=== PATIENT | male | born 1965 | race Caucasian/White ===

== ENCOUNTER 2018-11-05 01:10 | Emergency (ER) | payer BC ==
[2018-11-05] MEDS ORDERED: Ondansetron 4 MG/2 ML SDV IVPUSH ONE (01:12)
[2018-11-05] MEDS ORDERED: Sodium Chloride 0.9% 1,000 ML IV ONE (01:12)
[2018-11-05 02:11] LABS: CHLORIDE,CL 104 mmol/L (98-107); SODIUM,NA 138 mmol/L (136-148)
--- NOTE | 2018-11-05 02:29 | CT ---
INDICATION: Right flank pain TECHNIQUE: CT abdomen and pelvis without contrast. COMPARISON: November 24, 2015 FINDINGS: Lower chest: Unremarkable. Liver: Hepatic steatosis. The liver measures 22.0 cm in length. Spleen: Unremarkable. Pancreas: Unremarkable. Gallbladder and bile ducts: Unremarkable. Adrenal glands: Unremarkable. Kidneys: Unremarkable. No kidney or ureteral stones and no hydronephrosis. GI tract: There is a duodenal diverticulum. Moderate amount of feces in the colon. Appendix is normal. Vascular structures: Unremarkable. Lymph nodes: Unremarkable. Miscellaneous: Unremarkable. No free air or significant free fluid. Pelvic Organs: Unremarkable. Bones: Unremarkable for age. IMPRESSION: No acute intra-abdominal inflammatory process identified. No renal stone or hydronephrosis. Moderate amount of feces in the colon. Hepatomegaly and hepatic steatosis. Please note that all CT scans at this facility use dose modulation, iterative reconstruction, and/or weight-based dosing when appropriate to reduce radiation dose to as low as reasonably achievable. Dictated by Debora Pérez MD @ Nov 05 2018 2:28AM Signed by Dr. Debora Pérez @ Nov 05 2018 2:28AM
[2018-11-05] MEDS ORDERED: Metoclopramide 10 MG/2 ML SDV IV ONE (02:43)
--- NOTE | 2018-11-05 03:11 | EDM.PDOC ---
ED HPI GENERAL MEDICAL PROBLEM - General Chief Complaint: Abdominal Pain Stated Complaint: RT SIDE HURTS Time Seen by Provider: 11/05/18 03:07 Source of Information: Reports: Patient - History of Present Illness INITIAL COMMENTS - FREE TEXT/NARRATIVE: HISTORY AND PHYSICAL: History of present illness: [Patient presents with 5 out of 10 right upper quadrant discomfort radiating to the flank, arrival he did decline pain medication. Pain has since dissipated to a 1 out of 10 and is tolerable No fever nausea vomiting chills sweats no chest pain shortness breath headache dizziness or palpitation no bowel or urine symptoms, will formed stool this morning ] Review of systems: As per history of present illness and below otherwise all systems reviewed and negative. Past medical history: As per history of present illness and as reviewed below otherwise noncontributory. Surgical history: As per history of present illness and as reviewed below otherwise noncontributory. Social history: No reported history of drug or alcohol abuse. Family history: As per history of present illness and as reviewed below otherwise noncontributory. Physical exam: HEENT: Atraumatic, normocephalic, pupils reactive, negative for conjunctival pallor or scleral icterus, mucous membranes moist, throat clear, neck supple, nontender, trachea midline. Lungs: Clear to auscultation, breath sounds equal bilaterally, chest nontender. Heart: S1S2, regular, negative for clicks, rubs, or JVD. Abdomen: Soft, nondistended, nontender. Negative for masses or hepatosplenomegaly. Negative for costovertebral tenderness. Pelvis: Stable nontender. Genitourinary: Deferred. Rectal: Deferred. Extremities: Atraumatic, negative for cords or calf pain. Neurovascular unremarkable. Neuro: Awake, alert, oriented. Cranial nerves II through XII unremarkable. Cerebellum unremarkable. Motor and sensory unremarkable throughout. Exam nonfocal. Diagnostics: []CBC CMP lipase troponin UA CT abdomen pelvis no contrast Therapeutics: Normal saline Reglan 10 mg IV [] Impression: [ colicky abdominal pain -resolved Moderate stool in the colon] Definitive disposition and diagnosis as appropriate pending reevaluation and review of above. right upper quadrant Pain Score (Numeric/FACES): 6 - Related Data Allergies Allergy/AdvReac Type Severity Reaction Status Date / Time thimerosal Allergy Unknown Redness Verified 01/17/16 13:46 Home Meds: Home Meds Lansoprazole [Prevacid 24Hr] 15 mg PO DAILY 03/22/15 [History] Loratadine [Claritin] 10 mg PO DAILY PRN 03/22/15 [History] Multivitamin [Men's Multi-Vitamin] 1 each PO DAILY 03/22/15 [History] [place]-3 Fatty Acids [Fish Oil] 1 tab PO DAILY 03/22/15 [History] Cetirizine [ZyrTEC] 1 tab PO PRN 01/17/16 [History] Hydrochlorothiazide 1 tab PO DAILY 01/17/16 [History] Lansoprazole [Prevacid] 1 tab PO PRN 01/17/16 [History] Meloxicam 1 tab PO DAILY 01/17/16 [History] amLODIPine Besylate [Amlodipine Besylate] 10 mg PO ACBREAKFAST 01/17/16 [History ] sulfaSALAzine 1 tab PO BID 01/17/16 [History] Past Medical History - Past Health History Medical/Surgical History: Denies Medical/Surgical History HEENT History: Reports: Other (See Below) Other HEENT History: Seasonal runny nose, sneezing symptoms Cardiovascular History: Reports: Hypertension Respiratory History: Reports: Sleep Apnea Other Respiratory History: Sleep apnea with machine Gastrointestinal History: Reports: Diverticulosis Other Gastrointestinal History: hx: Diverticulitis with perforation, history 3 week therapy of antibiotics Genitourinary History: Reports: Renal Calculus Musculoskeletal History: Reports: Other (See Below) Other Musculoskeletal History: ankolosying spondolitis right hip Neurological History: Reports: Other (See Below) Other Neuro History: Right Carpal Tunnel Syndrome Endocrine/Metabolic History: Reports: Obesity/BMI 30+ Hematologic History: Reports: None Immunologic History: Reports: Other (See Below) Other Immunologic History: 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 and MRSA positive long time ago, informed if he has not had follow up testing we need to 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 as MRSA positive, instructed to follow with primary provider to do testing as recommended to see if current or can be off his record, he verbalized understanding Oncologic (Cancer) History: Reports: None Dermatologic History: Reports: Other (See Below) Other Dermatologic History: Sebaceous Cyst - Infectious Disease History Infectious Disease History: Reports: None - Past Surgical History Head Surgeries/Procedures: Reports: None Social & Family History - Family History Family Medical History: Noncontributory - Tobacco Use Smoking Status *Q: Never Smoker Second Hand Smoke Exposure: No - Caffeine Use Caffeine Use: Reports: Coffee - Recreational Drug Use Recreational Drug Use: No ED ROS GENERAL - Review of Systems Review Of Systems: See Below ED EXAM, GENERAL - Physical Exam Exam: See Below Course - Vital Signs Last Recorded V/S: Last Vital Signs Temp 98.2 F 11/05/18 01:34 Pulse 72 11/05/18 01:34 Resp 16 11/05/18 01:34 BP 136/80 11/05/18 01:34 Pulse Ox 96 11/05/18 01:34 - Orders/Labs/Meds Orders: Active Orders 24 hr Category Date Time Status EKG Documentation Completion [RC] STAT Care 11/05/18 01:12 Active Labs: Laboratory Tests 11/05/18 11/05/18 11/05/18 Range/Units 01:35 01:35 01:39 WBC 5.71 (4.0-11.0) K/uL RBC 4.99 (4.50-5.90) M/uL Hgb 15.5 (13.0-17.0) g/dL Hct 44.4 (38.0-50.0) % MCV 89.0 (80.0-98.0) fL MCH 31.1 (27.0-32.0) pg MCHC 34.9 (31.0-37.0) g/dL RDW Std Deviation 42.2 (28.0-62.0) fl RDW Coeff of Jodie 13 (11.0-15.0) % Plt Count 248 (150-400) K/uL MPV 9.20 (7.40-12.00) fL Neut % (Auto) 58.0 (48.0-80.0) % Lymph % (Auto) 31.7 (16.0-40.0) % [place] % (Auto) 7.0 (0.0-15.0) % Eos % (Auto) 2.8 (0.0-7.0) % Baso % (Auto) 0.5 (0.0-1.5) % Neut # (Auto) 3.3 (1.4-5.7) K/uL Lymph # (Auto) 1.8 (0.6-2.4) K/uL [place] # (Auto) 0.4 (0.0-0.8) K/uL Eos # (Auto) 0.2 (0.0-0.7) K/uL Baso # (Auto) 0.0 (0.0-0.1) K/uL Nucleated RBC % 0.0 /100WBC Nucleated RBCs # 0 K/uL Sodium 138 (136-148) mmol/L Potassium 3.8 (3.5-5.1) mmol/L Chloride 104 (98-107) mmol/L Carbon Dioxide 27.4 (21.0-32.0) mmol/L BUN 13 (7.0-18.0) mg/dL Creatinine 1.1 (0.8-1.3) mg/dL Est Cr Clr Drug Dosing 79.45 mL/min Estimated GFR (MDRD) > 60.0 ml/min Glucose 175 H (74-106) mg/dL Calcium 8.7 (8.5-10.1) mg/dL Total Bilirubin 0.5 (0.2-1.0) mg/dL AST 32 (15-37) IU/L ALT 67 H (14-63) IU/L Alkaline Phosphatase 71 (46-116) U/L Troponin I < 0.050 (0.000-0.056) ng/mL Total Protein 8.0 (6.4-8.2) g/dL Albumin 4.1 (3.4-5.0) g/dL Globulin 3.9 (2.6-4.0) g/dL Albumin/Globulin Ratio 1.1 (0.9-1.6) Lipase 109 (73-393) U/L Urine Color YELLOW Urine Appearance CLEAR Urine pH 5.5 (5.0-8.0) Ur Specific [place] 1.010 (1.001-1.035) Urine Protein NEGATIVE (NEGATIVE) mg/dL Urine Glucose (UA) NEGATIVE (NEGATIVE) mg/dL Urine Ketones NEGATIVE (NEGATIVE) mg/dL Urine Occult Blood NEGATIVE (NEGATIVE) Urine Nitrite NEGATIVE (NEGATIVE) Urine Bilirubin NEGATIVE (NEGATIVE) Urine Urobilinogen 0.2 (<2.0) EU/dL Ur Leukocyte Esterase NEGATIVE (NEGATIVE) Meds: Medications Discontinued Medications Generic Name Dose Route Start Last Admin Trade Name Freq PRN Reason Stop Dose Admin Sodium Chloride 1,000 mls @ 999 mls/hr 11/05/18 01:12 11/05/18 01:45 Normal Saline IV 11/05/18 02:12 999 mls/hr STAT ONE Administration Metoclopramide HCl 10 mg 11/05/18 02:43 11/05/18 03:07 Reglan IV 11/05/18 02:44 10 mg ONETIME ONE Administration Ondansetron HCl 8 mg 11/05/18 01:12 11/05/18 02:13 Zofran IVPUSH 11/05/18 01:13 Not Given ONETIME ONE Departure - Departure Time of Disposition: 03:09 Disposition: Home, Self-Care 01 Condition: Good Clinical Impression: Abdominal pain - Discharge Information Referrals: PCP,None [Primary Care Provider] - Additional Instructions: Clear liquid diet 12-24 hours MiraLAX 17 g by mouth daily until clear Return if symptoms persist or worsen Follow-up with primary care in 2 weeks sooner as needed If symptoms persist recommend ultrasound to rule out gallbladder involvement [facility] - Primary Care [address] [place] [id number] The following information is given to patients seen in the emergency department who are being discharged to home. This information is to outline your options for follow-up care. We provide all patients seen in our emergency department with a follow-up referral. The need for follow-up, as well as the timing and circumstances, are variable depending upon the specifics of your emergency department visit. If you don't have a primary care physician on staff, we will provide you with a referral. We always advise you to contact your personal physician following an emergency department visit to inform them of the circumstance of the visit and for follow-up with them and/or the need for any referrals to a consulting specialist. The emergency department will also refer you to a specialist when appropriate. This referral assures that you have the opportunity for follow-up care with a specialist. All of these measure are taken in an effort to provide you with optimal care, which includes your follow-up. Under all circumstances we always encourage you to contact your private physician who remains a resource for coordinating your care. When calling for follow-up care, please make the office aware that this follow-up is from your recent emergency room visit. If for any reason you are refused follow-up, please contact the [facility] emergency department at and asked to speak to the emergency department charge nurse. - My Orders Last 24 Hours: My Active Orders 11/05/18 01:12 EKG Documentation Completion [RC] STAT - Assessment/Plan Last 24 Hours: My Active Orders 11/05/18 01:12 EKG Documentation Completion [RC] STAT
[2018-11-05 04:03] VITALS: BP 135/77
== END 2018-11-05 03:45 | disposition home or self-care (01) ==
LOC: MW.ED 01:10
DX: R10.11 Right upper quadrant pain (principal); I10 Essential (primary) hypertension; E66.9 Obesity, unspecified; Z88.8 Allergy status to other drugs, medicaments and biological substances; Z79.899 Other long term (current) drug therapy
CPT/HCPCS: 36415; 74176; 80053; 81003; 83690; 84484; 85025; 93005; 96361; 96374; 99284; J2765; J7040

== ENCOUNTER 2020-01-27 20:45 | Emergency (ER) | payer BC ==
[2020-01-27] MEDS ORDERED: Ibuprofen 600 MG Tab PO ONE (21:28)
--- NOTE | 2020-01-27 23:25 | US ---
Indication: Right testicular pain Technique: Ultrasound of the scrotum and contents. Sonographic bradford-scale images were obtained with spectral and color Doppler waveform and spectral waveform analysis of the testicles. Comparison: None Findings: Bother testicles are normal in size and echotexture. Heterogeneous somewhat echogenic masslike structure along the margin of the right testicle measures 0.8 cm, this is believed to represent the testicular appendix. No other masses or suspicious calcifications. Normal arterial and venous color Doppler blood flow and spectral waveforms are present in both testicles. Epididymis: Unremarkable bilaterally except for a 1.3 cm right epididymal cyst. Normal blood flow. Other: Small bilateral varicoceles. No significant hydrocele. Scrotal wall is normal. Impression: No acute findings evident. No sign of inflammation or torsion. Suspected testicular appendix creating a masslike appearance in the right testicle. A follow-up ultrasound may be considered if the patient`s symptoms persist or worsen. Dictated by Stone Key MD @ Jan 27 2020 11:17PM Signed by Dr. Stone Key @ Jan 27 2020 11:24PM
--- NOTE | 2020-01-28 00:16 | EDM.PDOC ---
ED HPI GENERAL MEDICAL PROBLEM - General Chief Complaint: Genitourinary Problem Stated Complaint: RIGHT TESTICULAR SWELLING Time Seen by Provider: 01/27/20 21:04 - History of Present Illness INITIAL COMMENTS - FREE TEXT/NARRATIVE: HISTORY AND PHYSICAL: History of present illness: This is a 54-year-old gentleman who presents the ER today complaining of pain to his right scrotum. Patient ports pain x1 to 2 days. Patient has any recent fevers, shakes, chills, nausea, vomiting, diarrhea, dysuria, frequency, urgency, hematuria. Patient has any change in his bowel or bladder habits. Patient denies any trauma. Patient has any abdominal pain. Review of systems: As per history of present illness and below otherwise all systems reviewed and negative. Past medical history: As per history of present illness and as reviewed below otherwise noncontributory. Surgical history: As per history of present illness and as reviewed below otherwise noncontributory. Social history: No reported history of drug or alcohol abuse. Family history: As per history of present illness and as reviewed below otherwise noncontributory. Physical exam: HEENT: Atraumatic, normocephalic, pupils reactive, negative for conjunctival pal vanda or scleral icterus, mucous membranes moist, throat clear, neck supple, nontender, trachea midline. Lungs: Clear to auscultation, breath sounds equal bilaterally, chest nontender. Heart: S1S2, regular, negative for clicks, rubs, or JVD. Abdomen: Soft, nondistended, nontender. Negative for masses or hepatosplenomegaly. Negative for costovertebral tenderness. Pelvis: Stable nontender. Genitourinary: Deferred. Rectal: Deferred. Extremities: Atraumatic, negative for cords or calf pain. Neurovascular unremarkable. Neuro: Awake, alert, oriented. Cranial nerves II through XII unremarkable. Cerebellum unremarkable. Motor and sensory unremarkable throughout. Exam nonfocal. Left testicle is nontender, right testicle is mildly tender to palpation. No swelling, masses, lymphadenopathy, or hernia defect. Normal cremasteric reflex. No penile discharge. Diagnostics: Ultrasound reveals right epididymal cyst no other pathology. Urinalysis normal Assessment and plan: 54-year-old gentleman who presents the ER today secondary to right testicular pain. Patient's ultrasound is unremarkable. Patient's urinalysis is normal. Patient be discharged home with instructions to follow-up with his primary care physician for urology referral if the symptoms should return. Patient be given phone number for our urology clinic in case he is unable to get a referral from his PCP. Patient be instructed to use ibuprofen as needed for pain. Reassessment at the time of disposition demonstrates that the patient is in no acute distress. The patient has remained stable throughout the entire ED visit and is without objective evidence for acute process requiring urgent intervention or hospitalization. The patient is stable for discharge, counseling is provided as documented above, discussed symptomatic treatment and specific conditions for return. I have spoken with the patient/caregive and discussed todays findings, in addition to providing specific details for the plan of care. Questions are a nswered and there is agreement with the plan. Definitive disposition and diagnosis as appropriate pending reevaluation and review of above. right testicle Pain Score (Numeric/FACES): 3 - Related Data Allergies Allergy/AdvReac Type Severity Reaction Status Date / Time thimerosal Allergy Unknown Redness Verified 01/27/20 21:01 Home Meds: Home Meds Lansoprazole [Prevacid 24Hr] 15 mg PO ASDIRECTED 03/22/15 [History] [place]-3 Fatty Acids [Fish Oil] 1 tab PO DAILY 03/22/15 [History] Cetirizine [ZyrTEC] 1 tab PO DAILY PRN 01/17/16 [History] Meloxicam 1 tab PO ASDIRECTED 01/17/16 [History] amLODIPine Besylate [Amlodipine Besylate] 10 mg PO ACBREAKFAST 01/17/16 [History] sulfaSALAzine 1 tab PO BID 01/17/16 [History] Ascorbic Acid [Vitamin C] 1 tab PO DAILY 01/27/20 [History] Past Medical History - Past Health History Medical/Surgical History: Denies Medical/Surgical History HEENT History: Reports: Other (See Below) Other HEENT History: Seasonal runny nose, sneezing symptoms Cardiovascular History: Reports: Hypertension Respiratory History: Reports: Sleep Apnea Other Respiratory History: Sleep apnea with machine Gastrointestinal History: Reports: Diverticulosis Other Gastrointestinal History: hx: Diverticulitis with perforation, history 3 week therapy of antibiotics Genitourinary History: Reports: Renal Calculus Musculoskeletal History: Reports: Other (See Below) Other Musculoskeletal History: ankolosying spondolitis right hip Neurological History: Reports: Other (See Below) Other Neuro History: Right Carpal Tunnel Syndrome Psychiatric History: Reports: None Endocrine/Metabolic History: Reports: Obesity/BMI 30+ Hematologic History: Reports: None Immunologic History: Reports: Other (See Below) Other Immunologic History: 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 and MRSA positive long time ago, informed if he has not had follow up testing we need to 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 as MRSA positive, instructed to follow with primary provider to do testing as recommended to see if current or can be off his record, he verbalized understanding Oncologic (Cancer) History: Reports: None Dermatologic History: Reports: Other (See Below) Other Dermatologic History: Sebaceous Cyst - Infectious Disease History Infectious Disease History: Reports: Chicken Pox - Past Surgical History Head Surgeries/Procedures: Reports: None Social & Family History - Family History Family Medical History: Noncontributory - Tobacco Use Smoking Status *Q: Never Smoker - Caffeine Use Caffeine Use: Reports: Coffee - Recreational Drug Use Recreational Drug Use: No ED ROS GENERAL - Review of Systems Review Of Systems: See Below ED EXAM, GENERAL - Physical Exam Exam: See Below Course - Vital Signs Last Recorded V/S: Last Vital Signs Temp 96.7 F L 01/27/20 21:06 Pulse 89 01/27/20 21:06 Resp 18 01/27/20 21:06 BP 146/84 H 01/27/20 21:06 Pulse Ox 98 01/27/20 21:06 - Orders/Labs/Meds Orders: Active Orders 24 hr Category Date Time Status Scrotal Duplex Ltd [US] Routine Exams 01/27/20 22:59 Taken Labs: Laboratory Tests 01/27/20 Range/Units 21:40 Urine Color YELLOW Urine Appearance CLEAR Urine pH 5.5 (5.0-8.0) Ur Specific [place] 1.025 (1.001-1.035) Urine Protein NEGATIVE (NEGATIVE) mg/dL Urine Glucose (UA) NEGATIVE (NEGATIVE) mg/dL Urine Ketones NEGATIVE (NEGATIVE) mg/dL Urine Occult Blood TRACE-INTACT H (NEGATIVE) Urine Nitrite NEGATIVE (NEGATIVE) Urine Bilirubin NEGATIVE (NEGATIVE) Urine Urobilinogen 0.2 (<2.0) EU/dL Ur Leukocyte Esterase NEGATIVE (NEGATIVE) Urine RBC 0-2 (0-2/HPF) Urine WBC 0-2 (0-5/HPF) Ur Epithelial Cells OCCASIONAL (NONE-FEW) Urine Bacteria RARE (NEGATIVE) Urine Mucus LIGHT (NONE-MOD) Meds: Medications Discontinued Medications Generic Name Dose Route Start Last Admin Trade Name Stone PRN Reason Stop Dose Admin Ibuprofen 600 mg 01/27/20 21:28 01/27/20 21:49 Motrin PO 01/27/20 21:29 Not Given ONETIME ONE Departure - Departure Time of Disposition: 00:14 Disposition: Home, Self-Care 01 Condition: Good Clinical Impression: Right testicular pain - Discharge Information Instructions: Testicular Self-Exam, [id number], Pain Without a Known Cause, Spermatocele Referrals: Vladimir Adams MD [Primary Care Provider] - Additional Instructions: You were seen and evaluated today secondary to your testicular pain. Etiology of the pain is unclear at this time. Please make an appointment to follow-up with your doctor if the pain would persist to get a urology referral or call the number below for an appointment with our urology clinic. You may use ibuprofen to assist with pain. [facility] - Urology [address] [place] [id number] The following information is given to patients seen in the emergency department who are being discharged to home. This information is to outline your options for follow-up care. We provide all patients seen in our emergency department with a follow-up referral. The need for follow-up, as well as the timing and circumstances, are variable depending upon the specifics of your emergency department visit. If you don't have a primary care physician on staff, we will provide you with a referral. We always advise you to contact your personal physician following an emergency department visit to inform them of the circumstance of the visit and for follow-up with them and/or the need for any referrals to a consulting specialist. The emergency department will also refer you to a specialist when appropriate. This referral assures that you have the opportunity for follow-up care with a specialist. All of these measure are taken in an effort to provide you with optimal care, which includes your follow-up. Under all circumstances we always encourage you to contact your private physician who remains a resource for coordinating your care. When calling for follow-up care, please make the office aware that this follow-up is from your recent emergency room visit. If for any reason you are refused follow-up, please contact the [facility] Emergency Department at and asked to speak to the emergency department charge nurse. Sepsis Event Note (ED) - Evaluation Sepsis Screening Result: No Definite Risk - Focused Exam Vital Signs: Vital Signs Temp Pulse Resp BP Pulse Ox 01/27/20 21:06 96.7 F L 89 18 146/84 H 98 - My Orders Last 24 Hours: My Active Orders 01/27/20 22:59 Scrotal Duplex Ltd [US] Routine - Assessment/Plan Last 24 Hours: My Active Orders 01/27/20 22:59 Scrotal Duplex Ltd [US] Routine
[2020-01-28 00:33] VITALS: BP 137/90; PULSE 80
--- NOTE | 2020-01-28 10:06 | US ---
EXAM DATE: 01/27/20 PATIENT'S AGE: 54 Patient: JALEN ALMENDAREZ Facility: [facility] Site . Site : [id number] Study: US-Testicle -01/27/2020 11:07:07 PM Ordering Physician: Fantasma Griffin Final Report: Indication: Right testicular pain Technique: Ultrasound of the scrotum and contents. Sonographic bradford-scale images were obtained with spectral and color Doppler waveform and spectral waveform analysis of the testicles. Comparison: None Findings: Bother testicles are normal in size and echotexture. Heterogeneous somewhat echogenic masslike structure along the margin of the right testicle measures 0.8 cm, this is believed to represent the testicular appendix. No other masses or suspicious calcifications. Normal arterial and venous color Doppler blood flow and spectral waveforms are present in both testicles. Epididymis: Unremarkable bilaterally except for a 1.3 cm right epididymal cyst. Normal blood flow. Other: Small bilateral varicoceles. No significant hydrocele. Scrotal wall is normal. Impression: No acute findings evident. No sign of inflammation or torsion. Suspected testicular appendix creating a masslike appearance in the right testicle. A follow-up ultrasound may be considered if the patient`s symptoms persist or worsen. Dictated by Stone Key MD @ Jan 27 2020 11:17PM Signed by: Stone Key MD @01/27/2020 11:24:02 PM (Electronic Signature) Report Signed by Proxy. MARSHALL
== END 2020-01-28 00:33 | disposition home or self-care (01) ==
LOC: MW.ED 20:45
DX: N50.811 Right testicular pain (principal); I10 Essential (primary) hypertension; E66.9 Obesity, unspecified; Z68.41 Body mass index [BMI] 40.0-44.9, adult; Z91.048 Other nonmedicinal substance allergy status; Z79.899 Other long term (current) drug therapy
CPT/HCPCS: 76870; 76870-26; 81001; 93976; 93976-26; 99283; 99284-25

== ENCOUNTER 2020-08-08 23:42 | Emergency (ER) | payer BC ==
[2020-08-09] MEDS ORDERED: Sodium Chloride 0.9% 2.5 ML Syringe FLUSH PRN (00:48)
[2020-08-09] MEDS ORDERED: fentaNYL 50 MCG/ML SDV IVPUSH ONE (00:48)
[2020-08-09] MEDS ORDERED: Sodium Chloride 0.9% 10 ML Syringe FLUSH PRN (00:48)
[2020-08-09] MEDS ORDERED: Ondansetron 4 MG/2 ML SDV IVPUSH ONE (00:48)
--- NOTE | 2020-08-09 00:55 | EDM.PDOC ---
ED HPI GENERAL MEDICAL PROBLEM - General Chief Complaint: Abdominal Pain Stated Complaint: POSSIBLE APPENDICITIS Time Seen by Provider: 08/08/20 23:48 - History of Present Illness INITIAL COMMENTS - FREE TEXT/NARRATIVE: History of present illness: [] Patient has right upper quadrant pain. It started at 20:00 after dinner. The patient had eaten a ham and macaroni and some other things. Pain is in the right upper quadrant and severe. It is burning and sharp. He threw up twice since. He has no change in bowels he has no change in urine. Review of systems: As per history of present illness and below otherwise all systems reviewed and negative. Past medical history: As per history of present illness and as reviewed below otherwise noncontributory. Surgical history: As per history of present illness and as reviewed below otherwise noncontributory. Social history: No reported history of drug or alcohol abuse. Family history: As per history of present illness and as reviewed below otherwise noncontributory. Physical exam: Constitutional - well developed, well-nourished and in no acute distress HEENT - normocephalic, no evidence of trauma - external nose and mouth normal - no mass in neck and no JVD - mucosae moist EYES - full EOM, PERRL, no icterus - no evidence of inflammation, injection, or drainage Respiratory - no respiratory distress, equal bilateral expansion, lungs clear to auscultation and no abnormal lung sounds Cardiovascular - Regular Rhythm with S1 and S2 appreciated and no murmur, gallop or rub. GI - abdomen soft without distension or organomegaly - normal bowel sounds - no rebound. Tender in the right upper quadrant with Leon sign positive by palpation. Musculoskeletal no gross deformity of long bones or joints - no tenderness, swelling or edema Neurologic - Alert and oriented times four - CN II-XII grossly intact - motor sensory and coordination symmetrically normal Psychiatric - appropriate mood and affect with normal thought content Hematologic - No petechiae or purpura - mucosa appropriate color and sclera not pale - normal nail bed color and refill Integument - no rash or evidence of trauma - normal turgor Diagnostics: [] Therapeutics: [] Impression: [] Plan: [] Definitive disposition and diagnosis as appropriate pending reevaluation and review of above. Right Upper Abdomen Pain Score (Numeric/FACES): 8 - Related Data Allergies Allergy/AdvReac Type Severity Reaction Status Date / Time thimerosal Allergy Unknown Redness Verified 01/27/20 21:01 Home Meds: Home Meds Lansoprazole [Prevacid 24Hr] 15 mg PO ASDIRECTED PRN 03/22/15 [History] amLODIPine Besylate [Amlodipine Besylate] 10 mg PO ACBREAKFAST 01/17/16 [History] Acetaminophen/HYDROcodone [Canton 325-10 MG] 1 tab PO Q4H PRN #20 tab 08/09/20 [Rx] Past Medical History - Past Health History Medical/Surgical History: Denies Medical/Surgical History HEENT History: Reports: Other (See Below) Other HEENT History: Seasonal runny nose, sneezing symptoms Cardiovascular History: Reports: Hypertension Respiratory History: Reports: Sleep Apnea Other Respiratory History: Sleep apnea with machine Gastrointestinal History: Reports: Diverticulosis Other Gastrointestinal History: hx: Diverticulitis with perforation, history 3 week therapy of antibiotics Genitourinary History: Reports: Renal Calculus Musculoskeletal History: Reports: Other (See Below) Other Musculoskeletal History: ankolosying spondolitis right hip Neurological History: Reports: Other (See Below) Other Neuro History: Right Carpal Tunnel Syndrome Psychiatric History: Reports: None Endocrine/Metabolic History: Reports: Obesity/BMI 30+ Hematologic History: Reports: None Immunologic History: Reports: Other (See Below) Other Immunologic History: 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 and MRSA positive long time ago, informed if he has not had follow up testing we need to 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 as MRSA positive, instructed to follow with primary provider to do testing as recommended to see if current or can be off his record, he verbalized understan sierra Oncologic (Cancer) History: Reports: None Dermatologic History: Reports: Other (See Below) Other Dermatologic History: Sebaceous Cyst - Infectious Disease History Infectious Disease History: Reports: Chicken Pox - Past Surgical History Head Surgeries/Procedures: Reports: None Social & Family History - Family History Family Medical History: No Pertinent Family History - Caffeine Use Caffeine Use: Reports: Coffee ED ROS GENERAL - Review of Systems Review Of Systems: Comprehensive ROS is negative, except as noted in HPI. ED EXAM, GENERAL - Physical Exam Exam: See Below Free Text/Narrative:: My physical exam is in the HPI Course - Vital Signs Text/Narrative:: 02 39 the patient is pain-free. Sonogram shows multiple stones. There is slight increased size of the common bile duct at 7 mm. The impression I have is that this patient has gallstones and has passed 1 causing biliary colic. He is advised to see a surgeon as soon as possible so that he can have his gallbladder removed. Last Recorded V/S: Last Vital Signs Temp 36.1 C 08/09/20 00:31 Pulse 68 08/09/20 00:31 Resp 18 08/09/20 00:31 BP 146/77 H 08/09/20 00:31 Pulse Ox 97 08/09/20 00:31 - Orders/Labs/Meds Orders: Active Orders 24 hr Category Date Time Status Sodium Chloride 0.9% [Saline Flush] Med 08/09/20 00:48 Active 10 ml FLUSH ASDIRECTED PRN Sodium Chloride 0.9% [Saline Flush] Med 08/09/20 00:48 Active 2.5 ml FLUSH ASDIRECTED PRN Saline Lock Insert [OM.PC] Stat Oth 08/09/20 00:48 Ordered Medication Orders Sodium Chloride (Sodium Chloride 0.9% 10 Ml Syringe) 10 ml FLUSH ASDIRECTED PRN PRN Reason: Keep Vein Open Last Admin: 08/09/20 01:22 Dose: 10 ml Documented by: HÉCTOR Sodium Chloride (Sodium Chloride 0.9% 2.5 Ml Syringe) 2.5 ml FLUSH ASDIRECTED PRN PRN Reason: Keep Vein Open Last Admin: 08/09/20 01:22 Dose: 2.5 ml Documented by: HÉCTOR Labs: Laboratory Tests 08/09/20 08/09/20 08/09/20 Range/Units 00:59 01:26 01:26 WBC 6.79 (4.0-11.0) K/uL RBC 4.90 (4.50-5.90) M/uL Hgb 15.2 (13.0-17.0) g/dL Hct 42.9 (38.0-50.0) % MCV 87.6 (80.0-98.0) fL MCH 31.0 (27.0-32.0) pg MCHC 35.4 (31.0-37.0) g/dL RDW Std Deviation 40.2 (28.0-62.0) fl RDW Coeff of Jodie 13 (11.0-15.0) % Plt Count 269 (150-400) K/uL MPV 8.80 (7.40-12.00) fL Neut % (Auto) 68.5 (48.0-80.0) % Lymph % (Auto) 21.9 (16.0-40.0) % Dade % (Auto) 6.9 (0.0-15.0) % Eos % (Auto) 2.1 (0.0-7.0) % Baso % (Auto) 0.6 (0.0-1.5) % Neut # (Auto) 4.7 (1.4-5.7) K/uL Lymph # (Auto) 1.5 (0.6-2.4) K/uL Dade # (Auto) 0.5 (0.0-0.8) K/uL Eos # (Auto) 0.1 (0.0-0.7) K/uL Baso # (Auto) 0.0 (0.0-0.1) K/uL Sodium 136 (136-148) mmol/L Potassium 3.7 (3.5-5.1) mmol/L Chloride 100 (98-107) mmol/L Carbon Dioxide 25.4 (21.0-32.0) mmol/L BUN 12 (7.0-18.0) mg/dL Creatinine 1.2 (0.8-1.3) mg/dL Est Cr Clr Drug Dosing 71.19 mL/min Estimated GFR (MDRD) > 60.0 ml/min Glucose 225 H (74-106) mg/dL Calcium 8.4 L (8.5-10.1) mg/dL Total Bilirubin 0.5 (0.2-1.0) mg/dL AST 32 (15-37) IU/L ALT 74 H (14-63) IU/L Alkaline Phosphatase 75 (46-116) U/L Total Protein 8.0 (6.4-8.2) g/dL Albumin 3.9 (3.4-5.0) g/dL Globulin 4.1 H (2.6-4.0) g/dL Albumin/Globulin Ratio 1.0 (0.9-1.6) Lipase 99 (73-393) U/L Urine Color YELLOW Urine Appearance CLEAR Urine pH 6.0 (5.0-8.0) Ur Specific [place] 1.025 (1.001-1.035) Urine Protein NEGATIVE (NEGATIVE) mg/dL Urine Glucose (UA) 100 H (NEGATIVE) mg/dL Urine Ketones NEGATIVE (NEGATIVE) mg/dL Urine Occult Blood NEGATIVE (NEGATIVE) Urine Nitrite NEGATIVE (NEGATIVE) Urine Bilirubin NEGATIVE (NEGATIVE) Urine Urobilinogen 0.2 (<2.0) EU/dL Ur Leukocyte Esterase NEGATIVE (NEGATIVE) Meds: Medications Generic Name Dose Route Start Last Admin Trade Name Freq PRN Reason Stop Dose Admin Sodium Chloride 10 ml 08/09/20 00:48 08/09/20 01:22 Sodium Chloride 0.9% 10 Ml Syringe FLUSH 10 ml ASDIRECTED PRN Administration Keep Vein Open Sodium Chloride 2.5 ml 08/09/20 00:48 08/09/20 01:22 Sodium Chloride 0.9% 2.5 Ml Syringe FLUSH 2.5 ml ASDIRECTED PRN Administration Keep Vein Open Discontinued Medications Generic Name Dose Route Start Last Admin Trade Name Freq PRN Reason Stop Dose Admin Fentanyl 50 mcg 08/09/20 00:48 08/09/20 01:22 Fentanyl 50 Mcg/Ml Sdv IVPUSH 08/09/20 00:49 50 mcg ONETIME ONE Administration Ondansetron HCl 4 mg 08/09/20 00:48 08/09/20 01:22 Ondansetron 4 Mg/2 Ml Sdv IVPUSH 08/09/20 00:49 4 mg ONETIME ONE Administration Departure - Departure Time of Disposition: 02:40 Disposition: Home, Self-Care 01 Condition: Good Clinical Impression: Biliary colic, Cholelithiasis - Discharge Information Prescriptions: Acetaminophen/HYDROcodone [Canton 325-10 MG] 1 tab PO Q4H PRN #20 tab PRN Reason: Pain (Moderate 4-6) Instructions: Cholelithiasis, [id number] Referrals: Vladimir Adams MD [Primary Care Provider] - Forms: ED Department Discharge Additional Instructions: [facility] - General Surgery [address], [address] [place] [address] The following information is given to patients seen in the emergency department who are being discharged to home. This information is to outline your options for follow-up care. We provide all patients seen in our emergency department with a follow-up referral. The need for follow-up, as well as the timing and circumstances, are variable depending upon the specifics of your emergency department visit. If you don't have a primary care physician on staff, we will provide you with a referral. We always advise you to contact your personal physician following an emergency department visit to inform them of the circumstance of the visit and for follow-up with them and/or the need for any referrals to a consulting specialist. The emergency department will also refer you to a specialist when appropriate. This referral assures that you have the opportunity for follow-up care with a specialist. All of these measure are taken in an effort to provide you with optimal care, which includes your follow-up. Under all circumstances we always encourage you to contact your private physi shilpa who remains a resource for coordinating your care. When calling for follow- up care, please make the office aware that this follow-up is from your recent emergency room visit. If for any reason you are refused follow-up, please contact the [facility] Emergency Department at and asked to speak to the emergency department charge nurse. Sepsis Event Note (ED) - Evaluation Sepsis Screening Result: No Definite Risk - Focused Exam Vital Signs: Vital Signs Temp Pulse Resp BP Pulse Ox 08/09/20 00:31 36.1 C 68 18 146/77 H 97 - My Orders Last 24 Hours: My Active Orders 08/09/20 00:48 Sodium Chloride 0.9% [Saline Flush] 10 ml FLUSH ASDIRECTED PRN Sodium Chloride 0.9% [Saline Flush] 2.5 ml FLUSH ASDIRECTED PRN Saline Lock Insert [OM.PC] Stat - Assessment/Plan Last 24 Hours: My Active Orders 08/09/20 00:48 Sodium Chloride 0.9% [Saline Flush] 10 ml FLUSH ASDIRECTED PRN Sodium Chloride 0.9% [Saline Flush] 2.5 ml FLUSH ASDIRECTED PRN Saline Lock Insert [OM.PC] Stat
--- NOTE | 2020-08-09 01:22 | CR ---
INDICATION: Right upper quadrant pain TECHNIQUE: AP view of the chest COMPARISON: None FINDINGS: The lungs are clear. There is no sizable pleural effusion or pneumothorax. The cardiomediastinal silhouette is normal. The visualized osseous structures are unremarkable. IMPRESSION: No acute intrathoracic process. Dictated by Donis Iglesias MD @ Aug 09 2020 1:20AM Signed by Dr. Donis Iglesias @ Aug 09 2020 1:20AM
[2020-08-09 02:04] LABS: BLOOD UREA NITROGEN,BUN 12 mg/dL (7.0-18.0); CARBON DIOXIDE,CO2 25.4 mmol/L (21.0-32.0); CHLORIDE,CL 100 mmol/L (98-107); GLUCOSE RANDOM 225 mg/dL (74-106); LIPASE 99 U/L (73-393); POTASSIUM,K 3.7 mmol/L (3.5-5.1); SODIUM,NA 136 mmol/L (136-148)
--- NOTE | 2020-08-09 02:25 | US ---
INDICATION: Right upper quadrant pain, nausea and vomiting TECHNIQUE: Multiple grayscale sonographic images of the right upper quadrant the abdomen. COMPARISON: None FINDINGS: Liver: Increased parenchymal echogenicity, compatible with steatosis. No intrahepatic biliary dilatation. Patent main portal vein. Common bile duct: Mildly dilated CBD up to 7 mm. Gallbladder: Multiple shadowing gallstones are present. No wall thickening or pericholecystic fluid. However, a positive Leon sign was elicited by the junior manufacturing engineer. Pancreas: Mostly obscured by overlying bowel gas, precluding assessment. Right kidney: Measures 10 cm in length. Normal cortical thickness and parenchymal echotexture. No hydronephrosis. IMPRESSION: 1. Cholelithiasis. No appreciable gallbladder wall thickening or pericholecystic fluid, however, a positive sonographic Leon sign was elicited. Acute cholecystitis is not excluded. Consider follow-up HIDA scan. 2. Mildly dilated CBD up to 7 mm. Nonvisualized pancreas. 3. Hepatic steatosis. Dictated by Donis Iglesias MD @ Aug 09 2020 2:18AM Signed by Dr. Donis Iglesias @ Aug 09 2020 2:23AM
[2020-08-09 05:21] VITALS: BP 143/83; PULSE 61
== END 2020-08-09 02:55 | disposition home or self-care (01) ==
LOC: MW.ED 23:42
DX: K80.50 Calculus of bile duct without cholangitis or cholecystitis without obstruction (principal); I10 Essential (primary) hypertension; E66.9 Obesity, unspecified; Z68.42 Body mass index [BMI] 45.0-49.9, adult; Z88.8 Allergy status to other drugs, medicaments and biological substances; Z79.899 Other long term (current) drug therapy
CPT/HCPCS: 36415; 71045; 76705; 80053; 81003; 83690; 85025; 96374; 96375; 99284; J2405; J3010; 99283